=== PATIENT | female | born 1975 | race Caucasian/White ===

== ENCOUNTER 2017-07-08 08:33 | Emergency (ER) | payer OTHER ==
[~2017-07-08] VITALS: Ht 160 cm; Wt 70.3 kg
[2017-07-08 08:43] VITALS: BP 136/81
== END 2017-07-08 09:26 | disposition home or self-care (01) ==
LOC: ER 08:34
DX: J20.9 Acute bronchitis, unspecified (principal); Z87.01 Personal history of pneumonia (recurrent)
CPT/HCPCS: 71045; 99283; A4606; Z7610

== ENCOUNTER 2018-05-24 18:39 | Emergency (ER) | payer OTHER ==
[~2018-05-24] VITALS: Ht 162.6 cm; Wt 70.3 kg
[2018-05-24 18:45] VITALS: BP 133/107
--- NOTE | 2018-05-24 18:57 | NUR ---
"Abdominal pain started 10days ago on/off sometimes pain goes to side fever,SOB ". Alert and oriented x 4, verbally resposnive and able to make needs known. on room air, breathing evenly and unlabored. kept comfortable. Dr. Damon at bedside for eval. Will continue to monitor accordingly.
== END 2018-05-24 19:42 | disposition home or self-care (01) ==
LOC: ER 18:45
DX: R07.89 Other chest pain (principal)
CPT/HCPCS: 71046; 99283; A4606; Z7610

== ENCOUNTER 2018-09-12 19:45 | Emergency (ER) | payer OTHER ==
[~2018-09-12] VITALS: Ht 165.1 cm; Wt 75.3 kg
[2018-09-12 20:14] LABS: APPEARANCE,URINE Clear (CLEAR); BILIRUBIN,URINE Negative (NEGATIVE); BLOOD, URINE Negative Ery/uL (NEGATIVE); COLOR,URINE Yellow (YELLOW); KETONES,URINE Negative (NEGATIVE); LEUKOCYTE ESTERASE ,URINE Negative (NEGATIVE); NITRITE, URINE Negative (NEGATIVE); PROTEIN,URINE Negative (NEGATIVE); UGLUCOSE Negative (NEGATIVE); UROBILINOGEN,URINE 0.2 EU/dL (0.2)
--- NOTE | 2018-09-12 21:03 | NUR ---
XRAY AT [facility].
--- NOTE | 2018-09-12 21:03 | NUR ---
[employer] AT BEDSIDE.
[2018-09-12 21:14] LABS: BASOPHILS # (AUTO) 0.1 /CMM (0.0-0.2); EOSINOPHILS % (AUTO) 0.4 % (0.0-6.0); HEMATOCRIT 39 % (33-45); HEMOGLOBIN 13.3 g/dL (11.5-14.8); LYMPHOCYTES % (AUTO) 31.3 % (20.0-44.0); MEAN CORPUSCULAR HGB CONC 34 g/dl (31.0-36.0); MEAN CORPUSCULAR VOLUME 91 fL (82-100); MONOCYTES # (AUTO) 0.7 /CMM (0.1-1.30); MONOCYTES % (AUTO) 10.4 % (2.0-12.0); NEUTROPHILS # (AUTO) 3.6 /CMM (1.8-8.9); NEUTROPHILS % (AUTO) 56.9 % (43.0-81.0); PLATELET COUNT (AUTO) 250 /CMM (150-450); RED BLOOD CELL COUNT(AUTO) 4.26 MIL/uL (4.0-5.2); WHITE BLOOD COUNT (AUTO) 6.4 K/uL (4.3-11.0)
[2018-09-12 21:37] LABS: ALBUMIN 4.3 g/dL (3.4-5.0); BILIRUBIN,TOTAL 0.2 mg/dL (0.2-1.0); CALCIUM, SERUM 9.3 mg/dL (8.5-10.1); CREATININE 0.7 mg/dL (0.6-1.3); POTASSIUM 3.9 mmol/L (3.5-5.1); TOTAL PROTEIN, SERUM 7.9 g/dL (6.4-8.2)
[2018-09-12 22:00] VITALS: BP 135/80
== END 2018-09-12 23:58 | disposition home or self-care (01) ==
LOC: ER 19:47
DX: R10.12 Left upper quadrant pain (principal)
CPT/HCPCS: 36415; 71046; 80053-TC; 81000-TC; 83690-TC; 84703-TC; 85025-TC